=== PATIENT | female | born 1995 | race African-American/Black ===

== ENCOUNTER 2017-04-15 20:03 | Emergency (ER) | payer SELFPAY ==
[~2017-04-15] VITALS: Ht 165.1 cm; Wt 51.0 kg
[~2017-04-15 20:03] MED LIST: CITA10SO PO; ZOFR4TAB3 SL
[2017-04-15 20:05] VITALS: BP 128/74; PULSE 65; RESP 15; TEMP 99.2; O2SAT 100
--- NOTE | 2017-04-15 22:11 | PD ---
HPI Chief Complaint: Bleeding Time Seen by Provider: 22:07 Travel History International Travel<30 days: No Contact w/Intl Traveler<30days: No Traveled to known affect area: No History of Present Illness HPI Patient comes in complaining of 6 or7 nosebleeds along with starting a second menstrual cycle this month that began yesterday. Patient states she was having some cramping abdominal pain felt like menstrual cramps and resolved while in the emergency department. Denies any fevers, nausea, vomiting, shortness of breath, chest pain, loss change of bowel or bladder, back pain, neck pain, or headaches. Patient reports a history of anemia that she was taking iron supplements stopped this several months ago. Patient uncertain what her hemoglobin normally runs. Patient also has concerns that she thought that she she has coughed up some blood as well. States she awoke with a nosebleed yesterday morning around 4:30 in the morning. Denies anything making it better or worse. Denies any radiation of the pain. Denies anything currently. PFSH Past Medical History ADHD: No Anemia: Yes (iron deficiency) Weight (Kg): 3 Anxiety: Yes Cancer: No Cardiovascular Problems: No Diabetes: No Diminished Hearing: No Headaches: No Psychiatric: No Immunizations Current: Yes Migraines: No Seizures: Yes (x 1 r/t poor nutrition) Thyroid Disease: No Ulcer: No ?: Not LMP: 04/14/17 Past Surgical History Surgical History: No Previous Surgery Social History Alcohol Use: No Tobacco Use: Yes (socially black n mild one every 2 days) Substance Use: No Allergies-Medications (Allergen,Severity, Reaction): Coded Allergies: banana (Unverified Allergy, Unknown, 04/15/17) cat dander (Unverified Allergy, Unknown, 04/15/17) Reported Meds & Prescriptions Reported Meds & Active Scripts Active Zofran ODT (Ondansetron HCl) 4 Mg Tab 4 Mg SL Q6H PRN FOR NAUSEA/VOMITING Reported Celexa (Citalopram Hydrobromide) 10 Mg/5 Ml Daxa 40 Mg PO DAILY Review of Systems Except as stated in HPI: all other systems reviewed are Neg Physical Exam Narrative GENERAL: Well-developed, well nourished, in no acute distress, and non-ill appearing. Smiling and cheerful. Eating a snack in bed. SKIN: Focused skin assessment warm and dry. HEAD: Atraumatic. Normocephalic. EYES: Pupils equal and round. EOMI. No scleral icterus. No injection or drainage. ENT: No nasal bleeding or discharge. Mucous membranes pink and moist. No tenderness to facial sinuses to palpation. Posterior pharynx nonerythematous, without exudate, and without bleeding. NECK: Trachea midline. Supple. No nuclear rigidity. CARDIOVASCULAR: Regular rate and rhythm. No murmur appreciated. RESPIRATORY: No accessory muscle use. No respiratory distress. Clear to auscultation. Breath sounds equal bilaterally. GASTROINTESTINAL: Abdomen soft, non-tender, nondistended, and no guarding. Hepatic and splenic margins not palpable. Normal bowel sounds 4. No pulsatile mass. MUSCULOSKELETAL: No obvious deformities. No clubbing. No cyanosis. No edema. Full range of motion. NEUROLOGICAL: Awake and alert. No obvious cranial nerve deficits. Motor grossly within normal limits. Normal speech. PSYCHIATRIC: Appropriate mood and affect; insight and judgment normal. Data Data Last Documented VS Vital Signs Date Time Temp Pulse Resp B/P (MAP) Pulse Ox O2 Delivery O2 Flow Rate FiO2 04/15/17 23:42 04/15/17 20:05 99.2 65 15 100 Room Air Orders Orders Complete Blood Count With Diff (04/15/17 22:05) Comprehensive Metabolic Panel (04/15/17 22:05) Lipase (04/15/17 22:05) Prothrombin Time / Inr (Pt) (04/15/17 22:05) Act Partial Throm Time (Ptt) (04/15/17 22:05) Urinalysis - C+S If Indicated (04/15/17 22:05) Iv Access Insert/Monitor (04/15/17 22:05) Ecg Monitoring (04/15/17 22:05) Oximetry (04/15/17 22:05) Sodium Chloride 0.9% Flush (Ns Flush) (04/15/17 22:15) Ed Urine Pregnancytest Poc (04/15/17 22:05) Chest, Single Ap (04/15/17 ) Labs Laboratory Tests Test 04/15/17 22:15 04/15/17 22:50 White Blood Count 8.5 TH/MM3 Red Blood Count 4.43 MIL/MM3 Hemoglobin 12.8 GM/DL Hematocrit 38.9 % Mean Corpuscular Volume 87.8 FL Mean Corpuscular Hemoglobin 28.9 PG Mean Corpuscular Hemoglobin Concent 32.9 % Red Cell Distribution Width 13.7 % Platelet Count 186 TH/MM3 Mean Platelet Volume 9.0 FL Neutrophils (%) (Auto) 67.6 % Lymphocytes (%) (Auto) 23.8 % Monocytes (%) (Auto) 5.3 % Eosinophils (%) (Auto) 3.0 % Basophils (%) (Auto) 0.3 % Neutrophils # (Auto) 5.8 TH/MM3 Lymphocytes # (Auto) 2.0 TH/MM3 Monocytes # (Auto) 0.5 TH/MM3 Eosinophils # (Auto) 0.3 TH/MM3 Basophils # (Auto) 0.0 TH/MM3 CBC Comment DIFF FINAL Differential Comment Prothrombin Time 11.3 SEC Prothromb Time International Ratio 1.0 RATIO Activated Partial Thromboplast Time 28.5 SEC Blood Urea Nitrogen 15 MG/DL Creatinine 0.88 MG/DL Random Glucose 144 MG/DL Total Protein 7.6 GM/DL Albumin 3.9 GM/DL Calcium Level 8.5 MG/DL Alkaline Phosphatase 58 U/L Aspartate Amino Transf (AST/SGOT) 14 U/L Alanine Aminotransferase (ALT/SGPT) 15 U/L Total Bilirubin 1.0 MG/DL Sodium Level 139 MEQ/L Potassium Level 3.5 MEQ/L Chloride Level 105 MEQ/L Carbon Dioxide Level 26.2 MEQ/L Anion Gap 8 MEQ/L Estimat Glomerular Filtration Rate 99 ML/MIN Lipase 147 U/L Urine Color LIGHT-RED Urine Turbidity HAZY Urine pH 5.5 Urine Specific [place] 1.030 Urine Protein 30 mg/dL Urine Glucose (UA) NEG mg/dL Urine Ketones NEG mg/dL Urine Occult Blood LARGE Urine Nitrite NEG Urine Bilirubin NEG Urine Urobilinogen 2.0 MG/DL Urine Leukocyte Esterase SMALL Urine RBC /hpf Urine WBC 8 /hpf Urine Squamous Epithelial Cells 1 /hpf Urine Mucus FEW /lpf Microscopic Urinalysis Comment CULT NOT INDICATED MDM Medical Decision Making Medical Screen Exam Complete: Yes Emergency Medical Condition: Yes Interpretation(s) Chest x-ray read by the radiologist shows: No evidence of acute cardiopulmonary disease. Differential Diagnosis Sinusitis, epistaxis, severe anemia, UTI, electrolyte abnormality, dysmenorrhea , menorrhagia, other Narrative Course Patient in no obvious distress upon re-evaluation. All pertinent laboratory result(s) discussed with patient. Discussed patient with Dr. Ospina prior to discharge, who is in agreement with plan of care and disposition.. Any questions/concerns in reference to patient diagnosis/condition discussed and clarified prior to patient's discharge. Reinforced sheer importance of close follow up with patient's primary physician or primary care clinic. Instructed patient to return to ED immediately, if symptoms return/worsen. Patient showed understanding of above instructions. Further instructions and recommendations were detailed in discharge paperwork. Patient ambulated without difficulty out of ED at discharge. Diagnosis Primary Impression: Epistaxis Additional Impression: Dysmenorrhea, unspecified Referrals: [facility] Patient Instructions: Dysmenorrhea (ED), Epistaxis (DC), General Instructions Additional Instructions: Follow-up with your primary care physician in 3-5 days for evaluation. Return to the emergency department if symptoms get worse. Disposition: 01 DISCHARGE HOME Condition: Stable Nik Pollock Apr 15, 2017 22:11
[2017-04-15] MEDS ORDERED: SODIUM CHLORIDE 0.9% FLUSH 10 ML FLUSH IV FLUSH PRN (22:15)
--- NOTE | 2017-04-15 22:27 | RADRPT ---
EXAM DATE/TIME: 04/15/2017 22:15 [place] COMPARISON: No previous studies available for comparison. INDICATIONS : Cough. MEDICAL HISTORY : None. SURGICAL HISTORY : None. ENCOUNTER: Initial ACUITY: 1 day PAIN SCORE: 0/10 LOCATION: Bilateral chest FINDINGS: A single view of the chest demonstrates the lungs to be symmetrically aerated without evidence of mas s, infiltrate or effusion. The cardiomediastinal contours are unremarkable. Osseous structures are intact. CONCLUSION: No evidence of acute cardiopulmonary disease. Nolan Griffith MD on April 15, 2017 at 22:25 Board Certified Radiologist. This report was verified electronically.
[2017-04-15 22:37] LABS: AUTOMATED NEUTROPHIL # 5.8 TH/MM3 (1.8-7.7); BASOPHIL % 0.3 % (0.0-2.0); EOSINOPHIL # 0.3 TH/MM3 (0-0.4); HEMATOCRIT 38.9 % (35.0-46.0); HEMO FLAGS DIFF FINAL; LYMPH % 23.8 % (9.0-44.0); MEAN CELL VOLUME 87.8 FL (80.0-100.0); MEAN CORPUSCULAR HEMOGLOBIN 28.9 PG (27.0-34.0); MEAN CORPUSCULAR HGB CONC 32.9 % (32.0-36.0); MONO % 5.3 % (0.0-8.0); NEUT % 67.6 % (16.0-70.0); PLATELET COUNT 186 TH/MM3 (150-450); RED BLOOD COUNT 4.43 MIL/MM3 (4.00-5.30); RED CELL DISTRIBUTION WIDTH 13.7 % (11.6-17.2); WHITE BLOOD COUNT 8.5 TH/MM3 (4.0-11.0)
[2017-04-15 22:48] LABS: ALT (GPT) 15 U/L (9-42); ANION GAP 8 MEQ/L (5-15); AST (GOT) 14 U/L (16-38); BICARBONATE 26.2 MEQ/L (21.0-32.0); BLOOD UREA NITROGEN 15 MG/DL (7-18); CHLORIDE 105 MEQ/L (98-107); GLOMERULAR FILTRATION RATE 99 ML/MIN (>89); POTASSIUM 3.5 MEQ/L (3.5-5.1); SODIUM (NA) 139 MEQ/L (136-145)
[2017-04-15 22:51] LABS: ALKALINE PHOSPHATASE 58 U/L (45-117)
[2017-04-15 22:57] LABS: PROTHROMBIN TIME - PATIENT 11.3 SEC (9.8-11.6)
[2017-04-15 22:58] LABS: APTT (PATIENT) 28.5 SEC (24.3-30.1)
[2017-04-15 23:10] LABS: BLOOD, URINE LARGE (NEG); COMMENT (UR) CULT NOT INDICATED; CULTURE IF INDICATED CULT NOT INDICATED; GLUCOSE,URINE NEG (NEG); KETONE, URINE NEG (NEG); MUCUS URINE FEW /lpf (OCC); NITRITE,URINE NEG (NEG); PH, URINE 5.5 (5.0-8.5); SQUAMOUS EPITHELIAL CELL URINE 1 /hpf (0-5)
[2017-04-15 23:11] LABS: URINE COLOR LIGHT-RED (YELLW/STRAW)
== END 2017-04-15 23:51 | disposition home or self-care (01) ==
LOC: NEPE 20:03
DX: R04.0 Epistaxis (principal); N94.6 Dysmenorrhea, unspecified; D50.9 Iron deficiency anemia, unspecified
CPT/HCPCS: 71010; 80053; 81001; 83690; 84703; 85025; 85610; 85730; 99284